=== PATIENT | female | born 1980 | race Caucasian/White ===

== ENCOUNTER 2024-03-10 07:37 | Emergency (ER) | payer OTHER ==
[~2024-03-10] VITALS: Ht 167.6 cm; Wt 114.0 kg
[2024-03-10] VITALS (7 sets, daily range): BP systolic 97–137; BP diastolic 57–87
[2024-03-10] MEDS ORDERED: SODIUM CHLORIDE 0.9% 1,000 ML IV ONE (07:45)
[2024-03-10] MEDS ORDERED: ONDANSETRON HCl 4 MG/2 ML SDV IV ONE (07:45)
[2024-03-10] MEDS ORDERED: ISOVUE-300 (Iopamidol) 100 ML SDV IV ONE (07:55)
[2024-03-10 08:03] LABS: URINE BLOOD DIPSTICK Negative (NEGATIVE); URINE GLUCOSE - DIPSTICK 500 mg/dL (NEGATIVE); URINE KETONE Trace mg/dL (NEGATIVE); URINE LEUK ESTERASE Negative (NEGATIVE); URINE NITRITE - DIPSTICK Negative (Negative); URINE PH 5.5 (4.5-8.0); URINE PROTEIN - DIPSTICK >=300 mg/dL (NEG-TRACE); URINE SPECIFIC GRAVITY >=1.030; URINE UROBILINOGEN - DIPSTICK 0.2 E.U./dL (0.2)
[2024-03-10 08:04] LABS: URINE COLOR Yellow
[2024-03-10 08:09] LABS: BASO% 0.4 % (0-3); EOS% 1.7 % (0-8); HEMATOCRIT 47.1 % (37.0-47.0); HEMOGLOBIN 16.4 g/dl (12.0-16.0); IMMATURE GRANULOCYTES 0.1 % (0.0-5.0); LYMPH% 23.9 % (15-41); MEAN CELL VOLUME 95.3 fL CALC (80.0-100.0); MEAN CORPUSCULAR HGB 33.2 pG CALC (26.0-32.0); MEAN CORPUSCULAR HGB CONC 34.8 g/dL CAL (32.0-36.0); MONO% 8.1 % (2-13); NEUT# 6.31 thou/uL (2.00-7.15); NEUT% 65.8 % (42-76); RED BLOOD COUNT 4.94 mill/uL (4.20-5.60); RED CELL DISTRI WIDTH 11.7 % (11.5-15.5)
[2024-03-10 08:11] LABS: URINE WBC 0-2 WBC/hpf (0-5)
[2024-03-10 08:12] LABS: URINE MUCUS MODERATE hpf (NONE-FEW); URINE SQUAMOUS EPITHELIAL CELL FEW EPI/hpf (0-FEW)
[2024-03-10 09:08] LABS: BILIRUBIN, TOTAL 0.7 mg/dL (0.02-1.3); CREATININE 0.6 mg/dL (0.5-1.0); POTASSIUM 3.9 mmol/l (3.5-5.1); TOTAL PROTEIN 6.7 g/dL (6.3-8.2)
[2024-03-10] MEDS ORDERED: IMODIUM A-D2 M3 PO (11:50)
== END 2024-03-10 12:10 | disposition home or self-care (01) ==
LOC: ED 07:37
PROVIDERS: Family Medicine
DX: R19.7 Diarrhea, unspecified (principal); E11.9 Type 2 diabetes mellitus without complications; E66.9 Obesity, unspecified; Z72.0 Tobacco use
CPT/HCPCS: J2405; Q9967